=== PATIENT | female | born 1975 | race Caucasian/White ===

== ENCOUNTER → 2019-10-22 | Outpatient (CLI) | payer OTHER ==
--- NOTE | 2019-10-22 11:40 | KCIC ---
MR of the right knee HISTORY: Right knee instability. Previous ACL reconstruction. TECHNIQUE: Routine multiplanar sequences are obtained. FINDINGS: No prior study available for comparison. No evidence of medial meniscal tear. No evidence of lateral meniscal tear. Anterior cruciate ligament reconstruction is intact. Posterior cruciate ligament is mildly heterogeneous, but intact. Medial collateral ligament intact. Iliotibial band unremarkable. Fibular collateral ligament, biceps femoris tendon and popliteus tendon are intact. Extensor mechanism is intact. Small joint effusion. 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 Geographic bone lesion within the distal femoral metaphysis, marginating the growth plate scar, measures 12 mm diameter. Slightly lobulated margins with punctate hyperintense T2 signal content. Appearance and location are compatible with a small enchondroma. No evidence of significant bone lesion or aggressive bone destruction. Small Lynn's cyst. IMPRESSION: 1. Intact anterior cruciate ligament reconstruction. 2. 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 Electronically signed by: Eros Leslie MD (10/22/2019 11:37 AM) [id number]
== END | disposition home or self-care (01) ==
LOC: KCIC MRI 09:24
PROVIDERS: ATTEND Family Medicine
DX: M94.261 Chondromalacia, right knee (principal); M17.11 Unilateral primary osteoarthritis, right knee; M71.21 Synovial cyst of popliteal space [Baker], right knee; M25.461 Effusion, right knee
CPT/HCPCS: 73721